=== PATIENT | male | born 1955 | race Caucasian/White ===

== ENCOUNTER → 2019-10-15 | Outpatient (CLI) | payer BC | END | disposition home or self-care (01) | LOC: LAB 12:36 | PROVIDERS: ATTEND Physician Assistant | DX: C61 Malignant neoplasm of prostate (principal) | CPT/HCPCS: 36415; 84153 ==

== ENCOUNTER → 2020-01-10 | Outpatient (CLI) | payer BC | END | disposition home or self-care (01) | LOC: LAB 08:26 | PROVIDERS: ATTEND Physician Assistant | DX: C61 Malignant neoplasm of prostate (principal) | CPT/HCPCS: 36415; 84153; 84154 ==

== ENCOUNTER → 2021-09-11 | Outpatient (CLI) | payer BC, MEDICARE | END | disposition home or self-care (01) | LOC: RAH 11:15 | PROVIDERS: ATTEND Orthopaedic Surgery | DX: M24.541 Contracture, right hand (principal); M25.561 Pain in right knee | CPT/HCPCS: 73721 ==

== ENCOUNTER → 2025-02-06 | Outpatient (CLI) | payer BC, MEDICARE ==
--- NOTE | 2025-02-06 13:00 | HMCIMG ---
STUDY: X-RAY OF THE LEFT KNEE, 3 VIEWS HISTORY: Left knee pain. TECHNIQUE: Anteroposterior, lateral, and oblique views of the left knee were obtained. COMPARISON: None FINDINGS: Tibiofemoral compartments: Mild reduction of the medial joint space. Tibiofemoral compartments: Lateral joint space is preserved. Patellofemoral joint: Joint space is maintained. Alignment: No dislocation or subluxation. Osseous structures: No acute fracture or focal lytic/sclerotic lesion. Degenerative features: No marginal osteophytes or erosions are identified. Soft tissues: Unremarkable. IMPRESSION: * Mild medial tibiofemoral joint space narrowing, compatible with early degenerative change. * Otherwise unremarkable left knee radiographs with preserved lateral and patellofemoral compartments and no acute osseous abnormality. /Villa Maria
== END | disposition home or self-care (01) ==
LOC: RAH 09:46
PROVIDERS: ATTEND Nurse Practitioner Family
DX: M17.12 Unilateral primary osteoarthritis, left knee (principal); M25.562 Pain in left knee
CPT/HCPCS: 73562